=== PATIENT | male | born 1995 | race Asian ===

== ENCOUNTER 2016-10-12 13:04 | Emergency (ER) | payer BC ==
[~2016-10-12] VITALS: Ht 177.8 cm; Wt 84.1 kg
[~2016-10-12 13:04] MED LIST: AMOXICILLIN 50500 MG PO; LEVAQUIN 5500 MG/TA1 PO; PROVENTIL0.09 MG/A1 IH
[2016-10-12 13:07] VITALS: TEMP 99
[2016-10-12 18:27] VITALS: BP 114/81; PULSE 82
== END 2016-10-12 18:33 | disposition home or self-care (01) ==
LOC: COL.ER 13:04
DX: S62.633B Displaced fracture of distal phalanx of left middle finger, initial encounter for open fracture (principal); S62.635B Displaced fracture of distal phalanx of left ring finger, initial encounter for open fracture; S62.637B Displaced fracture of distal phalanx of left little finger, initial encounter for open fracture; J45.909 Unspecified asthma, uncomplicated; Z98.890 Other specified postprocedural states; W28.XXXA Contact with powered lawn mower, initial encounter; Y92.009 Unspecified place in unspecified non-institutional (private) residence as the place of occurrence of the external cause

== ENCOUNTER 2017-07-03 06:38 | Emergency (ER) | payer BC ==
[~2017-07-03] VITALS: Ht 175.3 cm; Wt 86.6 kg
[2017-07-03 06:44] VITALS: BP 129/82; TEMP 97.1
[2017-07-03] MEDS ORDERED: FLEXERIL 1010 MG/TAB PO (07:23)
[2017-07-03 08:02] VITALS: PULSE 71
== END 2017-07-03 08:00 | disposition home or self-care (01) ==
LOC: COL.ER 06:38
DX: S46.912A Strain of unspecified muscle, fascia and tendon at shoulder and upper arm level, left arm, initial encounter (principal); J45.909 Unspecified asthma, uncomplicated; X50.0XXA Overexertion from strenuous movement or load, initial encounter; Y92.39 Other specified sports and athletic area as the place of occurrence of the external cause
CPT/HCPCS: J1885